=== PATIENT | male | born 1950 | race Caucasian/White ===

== ENCOUNTER 2017-02-09 18:24 | Emergency (ER) | payer MEDICARE ==
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
--- NOTE | 2017-02-09 21:17 | CT ---
EXAM DESCRIPTION: Head CLINICAL HISTORY: FALL FROM LADDER COMPARISON: None Available. TECHNIQUE: Contiguous axial images of the brain were obtained without the administration of intravenous contrast. This exam was performed according to our departmental dose-optimization program, which includes automated exposure control, adjustment of the mA and/or kV according to patient size and/or use of iterative reconstruction technique. FINDINGS: There is no acute intracranial hemorrhage or mass effect. There is generalized atrophy. There is atherosclerosis. Ventricular system is within normal limits. There is adequate askew-white matter differentiation. There is no skull fracture. The visualized paranasal sinuses and mastoid air cells are within normal limits. IMPRESSION: No acute intracranial abnormalities. Electronically signed by: aMrko Hu MD 02/09/2017 9:[address] [facility]
--- NOTE | 2017-02-09 21:21 | CT ---
EXAM DESCRIPTION: CT CERVICAL SPINE CLINICAL HISTORY: FALL FROM LADDER COMPARISON: None Available. TECHNIQUE: Contiguous axial images of the cervical spine were obtained followed by reconstruction images.This exam was performed according to our departmental dose-optimization program, which includes automated exposure control, adjustment of the mA and/or kV according to patient size and/or use of iterative reconstruction technique. FINDINGS: There is no acute fracture or subluxation. The prevertebral soft tissues are within normal limits. There is intervertebral disc space narrowing at C6-C7. There is left neural foramina narrowing at C3-C4, bilateral neural foramina narrowing at C4-C5, and left neural foramina narrowing at C5-C6 and C6-7. There is atherosclerosis. IMPRESSION: No acute fracture or subluxation. Electronically signed by: Marko Hu MD 02/09/2017 9:20 PM [facility]
--- NOTE | 2017-02-09 21:32 | CT ---
EXAM DESCRIPTION: Abdomen/Pelvis w/Contrast (accession [id number]), Chest w/Contrast (accession [id number]) CLINICAL HISTORY: 67 years Male, FALL FROM LADDER COMPARISON: None. TECHNIQUE: Contiguous axial CT images of the chest, abdomen and pelvis were acquired after the administration of intravenous contrast. Coronal and sagittal reformatted images are provided. This exam was performed according to our departmental dose-optimization program which includes use of Automated Exposure Control, adjustment of the mA and/or kV according to patient size and/or use of iterative reconstruction technique. FINDINGS: CT chest: Unremarkable neck base and mediastinum. Normal heart size. Unremarkable thoracic aorta and pulmonary arteries. Patent central airways. No pneumothorax or pleural effusion. Minimal dependent atelectasis within both lungs. No suspicious pulmonary nodules or masses. No acute fracture. CT abdomen and pelvis: Unremarkable liver, gallbladder, biliary ducts, spleen, adrenals, and pancreas. Bilateral low-attenuation lesions of the kidneys, statistically simple renal cyst. Some lesions demonstrate slightly increased attenuation and may contain proteinaceous or hemorrhagic components. Mild calcific atherosclerosis of the aortoiliac vessels. No lymphadenopathy. Scattered colonic diverticula. No free air or free fluid. Unremarkable reproductive organs. Normal bladder. No acute osseous or soft tissue abnormalities. Fat-containing bilateral inguinal hernias. IMPRESSION: No acute traumatic findings of the chest, abdomen, or pelvis. Multiple low-attenuation renal lesions, statistically simple cysts. Some lesions are slightly high in attenuation and may represent hemorrhagic or proteinaceous cyst. Scattered colonic diverticula. Electronically signed by: Prabhakar Owen MD 02/09/2017 9:30 PM [employer]
--- NOTE | 2017-02-09 21:32 | CT ---
EXAM DESCRIPTION: Abdomen/Pelvis w/Contrast (accession [id number]), Chest w/Contrast (accession [id number]) CLINICAL HISTORY: 67 years Male, FALL FROM LADDER COMPARISON: None. TECHNIQUE: Contiguous axial CT images of the chest, abdomen and pelvis were acquired after the administration of intravenous contrast. Coronal and sagittal reformatted images are provided. This exam was performed according to our departmental dose-optimization program which includes use of Automated Exposure Control, adjustment of the mA and/or kV according to patient size and/or use of iterative reconstruction technique. FINDINGS: CT chest: Unremarkable neck base and mediastinum. Normal heart size. Unremarkable thoracic aorta and pulmonary arteries. Patent central airways. No pneumothorax or pleural effusion. Minimal dependent atelectasis within both lungs. No suspicious pulmonary nodules or masses. No acute fracture. CT abdomen and pelvis: Unremarkable liver, gallbladder, biliary ducts, spleen, adrenals, and pancreas. Bilateral low-attenuation lesions of the kidneys, statistically simple renal cyst. Some lesions demonstrate slightly increased attenuation and may contain proteinaceous or hemorrhagic components. Mild calcific atherosclerosis of the aortoiliac vessels. No lymphadenopathy. Scattered colonic diverticula. No free air or free fluid. Unremarkable reproductive organs. Normal bladder. No acute osseous or soft tissue abnormalities. Fat-containing bilateral inguinal hernias. IMPRESSION: No acute traumatic findings of the chest, abdomen, or pelvis. Multiple low-attenuation renal lesions, statistically simple cysts. Some lesions are slightly high in attenuation and may represent hemorrhagic or proteinaceous cyst. Scattered colonic diverticula. Electronically signed by: Prabhakar Owen MD 02/09/2017 9:30 PM [employer]
[2017-02-09] MEDS: KETOROLAC TROMETHAMINE INJ 30 MG/ML VIAL IV ONE (22:03)
[2017-02-09 22:14] VITALS: BP 157/98; TEMP 98.6; O2SAT 100
== END 2017-02-09 22:29 | disposition home or self-care (01) ==
LOC: ER 18:24
DX: S30.1XXA Contusion of abdominal wall, initial encounter (principal); I10 Essential (primary) hypertension; W11.XXXA Fall on and from ladder, initial encounter; Y92.9 Unspecified place or not applicable
CPT/HCPCS: 70450; 71260; 72125; 74177; 80053; 85025; 85610; 85730; J1885